=== PATIENT | female | born 1940 | race Caucasian/White ===

== ENCOUNTER 2022-12-28 10:11 | Inpatient (IN) | payer OTHER ==
[2022-12-28 12:10] LABS: BASO % 0.7 % (0-2.0); EOS % 0.6 % (0-4.5); HEMATOCRIT 42.8 % (32.4-45.2); HEMOGLOBIN 14.6 GM/dL (10.7-15.3); LYMPH % 10.9 % (8-40); MCH 30.9 pg (25.7-33.7); MCHC 34.1 g/dl (32.0-36.0); MEAN CELL VOLUME 90.7 fl (80-96); MONO % 3.4 % (3.8-10.2); NEUT % 84.4 % (42.8-82.8); PLATELET COUNT 276 10^3/uL (134-434); RBC 4.72 M/mm3 (3.60-5.2); RDW 14.3 % (11.6-15.6); WHITE BLOOD COUNT 12.3 K/mm3 (4.0-10.0)
[2022-12-28 12:18] LABS: INR 1.48 (0.83-1.09); PROTHROMBIN TIME (PATIENT) 17.1 SEC (9.7-13.0)
[2022-12-28 12:21] LABS: ACTIVATED PTT 31.3 SECONDS (25.2-36.5)
[2022-12-28 12:29] LABS: POTASSIUM 3.9 mmol/L (3.5-5.1)
[2022-12-28 12:31] LABS: ALBUMIN 2.9 g/dl (3.4-5.0); CALCIUM 9.3 mg/dL (8.5-10.1)
[2022-12-28 12:32] LABS: BLOOD UREA NITROGEN 27.5 mg/dL (7-18)
[2022-12-28 12:34] LABS: CREATININE 0.8 mg/dL (0.55-1.3)
[2022-12-28 12:36] LABS: BILIRUBIN,TOTAL 0.7 mg/dL (0.2-1); TOT PROT 6.7 g/dl (6.4-8.2)
[2022-12-28 12:40] LABS: N-TERMINAL BNP 1558.6 pg/ml (5-450)
[2022-12-28 12:48] LABS: LACTIC ACID 3.1 mmol/L (0.4-2.0)
[2022-12-28 13:27] LABS: VENOUS BASE EXCESS 5.7 mmol/L (-2-2); VENOUS O2 SATURATION 37.3 % (70-80); VENOUS PCO2 59.7 mmHg (38-52); VENOUS PH 7.363 (7.310-7.410)
[2022-12-28 13:37] LABS: EPI CELLS 4 /uL (0-25.1); HYALINE CASTS 0 /uL (0-3.1); PH,URINE 6.5 (5.0-8.0); URINE APPEARANCE CLEAR; URINE BACTERIA >9,000 /uL (0-1359); URINE BILIRUBIN NEGATIVE (NEGATIVE); URINE COLOR YELLOW; URINE GLUCOSE (UA) NEGATIVE (NEGATIVE); URINE KETONE NEGATIVE (NEGATIVE); URINE LEUK ESTERASE 1+ (NEGATIVE); URINE NITRITE POSITIVE (NEGATIVE); URINE PROTEIN NEGATIVE (NEGATIVE); URINE RBC 19 /uL (0-23.9); URINE UROBILINOGEN 0.2 mg/dL (0.2-1.0); URINE WBC 89 /uL (0-25.8)
[2022-12-28] MEDS ORDERED: PIPERACILLIN/TAZOB 3.375 GM 3.375 GM in DEXTROSE 5%-WATER - 50 ML IVPB ONE (13:45)
[2022-12-28] MEDS ORDERED: PIPERACILLIN/TAZOB 3.375 GM 3.375 GM/50 ML BAG IVPB ONE (13:54)
[2022-12-28 14:13] LABS: ARTERIAL BLD GAS O2 SATURATION 96.4 % (95-98); ARTERIAL BLOOD GAS BASE EXCESS 5.9 mmol/L (-2-2); ARTERIAL BLOOD GAS PO2 77.4 mmHg (80-100); ARTERIAL BLOOD GAS pH 7.494 (7.350-7.450)
[2022-12-28 14:16] LABS: ALLENS TEST POSITIVE
[2022-12-28 15:17] VITALS: BMI 44.4
[2022-12-28] MEDS ORDERED: metoPROLOL SUCCINATE 25 MG TAB.SR.24H (FP) PO ONE (18:01)
[2022-12-28] MEDS: INSULIN SLIDING SCALE (NOVOLOG) 1 VIAL SQ SCH ×2 (18:05→21:38)
[2022-12-28] MEDS ORDERED: INSULIN (NOVOLOG) ASPART 100 UNITS/ML 10ML VIAL ONE (21:19)
[2022-12-28] MEDS: busPIRone HCL 5 MG TABLET PO SCH (21:28)
[2022-12-28] MEDS: MEMANTINE HCL 10 MG TABLET (FP) PO SCH (21:28)
[2022-12-28] MEDS: ATORVASTATIN CA 20 MG TABLET (FP) PO SCH (21:28)
[2022-12-28] MEDS: APIXABAN 5 MG TABLET PO SCH (21:28)
[2022-12-29] MEDS: INSULIN SLIDING SCALE (NOVOLOG) 1 VIAL SQ SCH ×4 (06:11→22:23)
[2022-12-29 08:08] LABS: POTASSIUM 3.1 mmol/L (3.5-5.1)
[2022-12-29 08:15] LABS: HEMATOCRIT 38.8 % (32.4-45.2); HEMOGLOBIN 13.1 GM/dL (10.7-15.3); MCH 30.7 pg (25.7-33.7); MCHC 33.8 g/dl (32.0-36.0); MEAN CELL VOLUME 90.7 fl (80-96); MEAN PLT VOLUME 7.7 fl (7.5-11.1); PLATELET COUNT 230 10^3/uL (134-434); RBC 4.28 M/mm3 (3.60-5.2); RDW 14.1 % (11.6-15.6)
[2022-12-29 08:40] LABS: BLOOD UREA NITROGEN 29.5 mg/dL (7-18); CALCIUM 9.3 mg/dL (8.5-10.1)
[2022-12-29 08:41] LABS: ALBUMIN 2.6 g/dl (3.4-5.0)
[2022-12-29 08:44] LABS: CREATININE 0.8 mg/dL (0.55-1.3)
[2022-12-29 08:45] LABS: BILIRUBIN,TOTAL 0.9 mg/dL (0.2-1); TOT PROT 6.1 g/dl (6.4-8.2)
[2022-12-29] MEDS ORDERED: DULoxetine HCL 20 MG CAPSULE.DR PO SCH (10:00)
[2022-12-29] MEDS: busPIRone HCL 5 MG TABLET PO SCH ×2 (10:06→22:21)
[2022-12-29] MEDS: metoPROLOL SUCCINATE 25 MG TAB.SR.24H (FP) PO SCH (10:06)
[2022-12-29] MEDS: FUROSEMIDE 20 MG TABLET (FP) PO SCH (10:06)
[2022-12-29] MEDS: APIXABAN 5 MG TABLET PO SCH ×2 (10:06→22:21)
[2022-12-29] MEDS: PANTOPRAZOLE 40 MG TABLET PO SCH (10:06)
[2022-12-29] MEDS: MEMANTINE HCL 10 MG TABLET (FP) PO SCH ×2 (10:06→22:21)
[2022-12-29] MEDS ORDERED: INSULIN (NOVOLOG) ASPART 100 UNITS/ML 10ML VIAL ONE (10:36)
[2022-12-29] MEDS: POLYETHYLENE GLYCOL (HEALTHYLAX) 3350 17 GM PACKET PO SCH (11:06)
[2022-12-29] MEDS: COLLAGENASE CLOSTRIDIUM HIST. 30 GRAMS TUBE TP SCH ×2 (12:00→14:00)
[2022-12-29] MEDS ORDERED: POTASSIUM CHLORIDE ORAL LIQUID 20 MEQ/15 ML PO ONE (14:33)
[2022-12-29] MEDS: PIPERACILLIN/TAZOB 3.375 GM 3.375 GM in DEXTROSE 5%-WATER - 50 ML IVPB SCH (17:26)
[2022-12-29] MEDS ORDERED: POTASSIUM CHLORIDE TABS 10 MEQ TABLET.ER (FP) PO SCH (22:00)
[2022-12-29] MEDS: DULoxetine HCL 20 MG CAPSULE.DR PO SCH (22:20)
[2022-12-29] MEDS: POTASSIUM CHLORIDE TABS 10 MEQ TABLET.ER (FP) PO SCH (22:21)
[2022-12-29] MEDS: ATORVASTATIN CA 20 MG TABLET (FP) PO SCH (22:21)
[2022-12-29] MEDS: NYSTATIN 100,000 UNIT/GM TOPICAL CREAM 15 GM TUBE TP SCH (22:22)
[2022-12-30] MEDS: PIPERACILLIN/TAZOB 3.375 GM 3.375 GM in DEXTROSE 5%-WATER - 50 ML IVPB SCH ×3 (01:04→17:12)
[2022-12-30] MEDS: INSULIN SLIDING SCALE (NOVOLOG) 1 VIAL SQ SCH ×4 (06:08→21:16)
[2022-12-30] MEDS ORDERED: INSULIN (NOVOLOG) ASPART 100 UNITS/ML 10ML VIAL ONE ×2 (06:21→21:07)
[2022-12-30 08:32] LABS: HEMATOCRIT 37.5 % (32.4-45.2); HEMOGLOBIN 12.6 GM/dL (10.7-15.3); MCH 30.4 pg (25.7-33.7); MCHC 33.6 g/dl (32.0-36.0); MEAN CELL VOLUME 90.5 fl (80-96); MEAN PLT VOLUME 7.6 fl (7.5-11.1); PLATELET COUNT 221 10^3/uL (134-434); RBC 4.15 M/mm3 (3.60-5.2); RDW 14.3 % (11.6-15.6); WHITE BLOOD COUNT 7.6 K/mm3 (4.0-10.0)
[2022-12-30 08:40] LABS: POTASSIUM 3.5 mmol/L (3.5-5.1)
[2022-12-30 08:42] LABS: BLOOD UREA NITROGEN 28.4 mg/dL (7-18); CALCIUM 8.7 mg/dL (8.5-10.1); MAGNESIUM 1.8 mg/dL (1.8-2.4)
[2022-12-30 08:43] LABS: ALBUMIN 2.4 g/dl (3.4-5.0)
[2022-12-30 08:45] LABS: CREATININE 0.9 mg/dL (0.55-1.3)
[2022-12-30 08:47] LABS: BILIRUBIN,TOTAL 0.4 mg/dL (0.2-1); TOT PROT 5.8 g/dl (6.4-8.2)
[2022-12-30] MEDS: DULoxetine HCL 20 MG CAPSULE.DR PO SCH ×2 (09:50→21:09)
[2022-12-30] MEDS: POLYETHYLENE GLYCOL (HEALTHYLAX) 3350 17 GM PACKET PO SCH (09:50)
[2022-12-30] MEDS: MEMANTINE HCL 10 MG TABLET (FP) PO SCH ×2 (09:51→21:10)
[2022-12-30] MEDS: PANTOPRAZOLE 40 MG TABLET PO SCH (09:51)
[2022-12-30] MEDS: APIXABAN 5 MG TABLET PO SCH ×2 (09:51→21:10)
[2022-12-30] MEDS: metoPROLOL SUCCINATE 25 MG TAB.SR.24H (FP) PO SCH (09:51)
[2022-12-30] MEDS: busPIRone HCL 5 MG TABLET PO SCH ×2 (09:51→21:10)
[2022-12-30] MEDS: POTASSIUM CHLORIDE TABS 10 MEQ TABLET.ER (FP) PO SCH ×2 (09:51→21:10)
[2022-12-30] MEDS: FUROSEMIDE 20 MG TABLET (FP) PO SCH (09:52)
[2022-12-30] MEDS: COLLAGENASE CLOSTRIDIUM HIST. 30 GRAMS TUBE TP SCH (09:54)
[2022-12-30] MEDS: NYSTATIN 100,000 UNIT/GM TOPICAL CREAM 15 GM TUBE TP SCH ×2 (09:54→21:10)
[2022-12-30] MEDS: ATORVASTATIN CA 20 MG TABLET (FP) PO SCH (21:09)
[2022-12-31] MEDS: PIPERACILLIN/TAZOB 3.375 GM 3.375 GM in DEXTROSE 5%-WATER - 50 ML IVPB SCH ×2 (01:49→10:15)
[2022-12-31] MEDS: INSULIN SLIDING SCALE (NOVOLOG) 1 VIAL SQ SCH ×4 (06:03→21:40)
[2022-12-31] MEDS: metoPROLOL SUCCINATE 25 MG TAB.SR.24H (FP) PO SCH (09:47)
[2022-12-31] MEDS: busPIRone HCL 5 MG TABLET PO SCH ×2 (09:47→21:24)
[2022-12-31] MEDS: POLYETHYLENE GLYCOL (HEALTHYLAX) 3350 17 GM PACKET PO SCH (09:47)
[2022-12-31] MEDS: FUROSEMIDE 20 MG TABLET (FP) PO SCH (09:47)
[2022-12-31] MEDS: PANTOPRAZOLE 40 MG TABLET PO SCH (09:47)
[2022-12-31] MEDS: APIXABAN 5 MG TABLET PO SCH ×2 (09:48→21:23)
[2022-12-31] MEDS: MEMANTINE HCL 10 MG TABLET (FP) PO SCH ×2 (09:48→21:25)
[2022-12-31] MEDS: POTASSIUM CHLORIDE TABS 10 MEQ TABLET.ER (FP) PO SCH ×2 (09:48→21:23)
[2022-12-31] MEDS: DULoxetine HCL 20 MG CAPSULE.DR PO SCH ×2 (09:49→21:23)
[2022-12-31] MEDS: NYSTATIN 100,000 UNIT/GM TOPICAL CREAM 15 GM TUBE TP SCH ×2 (10:01→21:24)
[2022-12-31] MEDS: COLLAGENASE CLOSTRIDIUM HIST. 30 GRAMS TUBE TP SCH (10:07)
[2022-12-31] MEDS ORDERED: INSULIN (NOVOLOG) ASPART 100 UNITS/ML 10ML VIAL ONE ×3 (11:22→21:07)
[2022-12-31] MEDS: CEFTRIAXONE 2 GM in DEXTROSE 5%-WATER 100 ML IVPB SCH (11:36)
[2022-12-31] MEDS ORDERED: ALPRAZolam 0.25 MG TABLET PO ONE ×2 (15:30→15:45)
[2022-12-31] MEDS: ATORVASTATIN CA 20 MG TABLET (FP) PO SCH (21:24)
[2023-01-01] MEDS: INSULIN SLIDING SCALE (NOVOLOG) 1 VIAL SQ SCH ×4 (06:00→21:34)
[2023-01-01] MEDS: POLYETHYLENE GLYCOL (HEALTHYLAX) 3350 17 GM PACKET PO SCH (09:35)
[2023-01-01] MEDS: APIXABAN 5 MG TABLET PO SCH ×2 (09:35→21:34)
[2023-01-01] MEDS: FUROSEMIDE 20 MG TABLET (FP) PO SCH (09:35)
[2023-01-01] MEDS: metoPROLOL SUCCINATE 25 MG TAB.SR.24H (FP) PO SCH (09:35)
[2023-01-01] MEDS: POTASSIUM CHLORIDE TABS 10 MEQ TABLET.ER (FP) PO SCH ×2 (09:35→21:34)
[2023-01-01] MEDS: DULoxetine HCL 20 MG CAPSULE.DR PO SCH ×2 (09:35→21:34)
[2023-01-01] MEDS: PANTOPRAZOLE 40 MG TABLET PO SCH (09:35)
[2023-01-01] MEDS: busPIRone HCL 5 MG TABLET PO SCH ×2 (09:35→21:34)
[2023-01-01] MEDS: COLLAGENASE CLOSTRIDIUM HIST. 30 GRAMS TUBE TP SCH (09:36)
[2023-01-01] MEDS: NAMENDA 21 MG PO SCH (09:46)
[2023-01-01] MEDS: CEFTRIAXONE 2 GM in DEXTROSE 5%-WATER 100 ML IVPB SCH (09:47)
[2023-01-01] MEDS: NYSTATIN 100,000 UNIT/GM TOPICAL CREAM 15 GM TUBE TP SCH ×2 (09:53→22:10)
[2023-01-01] MEDS ORDERED: INSULIN (NOVOLOG) ASPART 100 UNITS/ML 10ML VIAL ONE ×2 (10:18→21:19)
[2023-01-01] MEDS ORDERED: ACETAMINOPHEN 1000 MG/100 ML BAG IVPB PRN (20:39)
[2023-01-01] MEDS ORDERED: CYCLOBENZAPRINE HCL 10 MG TABLET (FP) PO ONE (20:39)
[2023-01-01] MEDS: ATORVASTATIN CA 20 MG TABLET (FP) PO SCH (21:34)
[2023-01-02] MEDS: INSULIN SLIDING SCALE (NOVOLOG) 1 VIAL SQ SCH ×4 (06:57→21:40)
[2023-01-02] MEDS: busPIRone HCL 5 MG TABLET PO SCH ×2 (09:31→21:35)
[2023-01-02] MEDS: PANTOPRAZOLE 40 MG TABLET PO SCH (09:31)
[2023-01-02] MEDS: metoPROLOL SUCCINATE 25 MG TAB.SR.24H (FP) PO SCH (09:31)
[2023-01-02] MEDS: POTASSIUM CHLORIDE TABS 10 MEQ TABLET.ER (FP) PO SCH ×2 (09:32→21:35)
[2023-01-02] MEDS: APIXABAN 5 MG TABLET PO SCH ×2 (09:32→21:35)
[2023-01-02] MEDS: CEFTRIAXONE 2 GM in DEXTROSE 5%-WATER 100 ML IVPB SCH (09:33)
[2023-01-02] MEDS: POLYETHYLENE GLYCOL (HEALTHYLAX) 3350 17 GM PACKET PO SCH (09:33)
[2023-01-02] MEDS: DULoxetine HCL 20 MG CAPSULE.DR PO SCH ×2 (09:35→21:35)
[2023-01-02] MEDS: NAMENDA 21 MG PO SCH (09:36)
[2023-01-02] MEDS: FUROSEMIDE 20 MG TABLET (FP) PO SCH (09:36)
[2023-01-02] MEDS: NYSTATIN 100,000 UNIT/GM TOPICAL CREAM 15 GM TUBE TP SCH ×2 (09:37→22:00)
[2023-01-02] MEDS: COLLAGENASE CLOSTRIDIUM HIST. 30 GRAMS TUBE TP SCH (11:32)
[2023-01-02] MEDS ORDERED: ALPRAZolam 0.25 MG TABLET PO ONE (12:00)
[2023-01-02] MEDS: FLUTICASONE PROP 0.05% 16 GM NASAL SPRAY NS SCH (16:59)
[2023-01-02] MEDS: ATORVASTATIN CA 20 MG TABLET (FP) PO SCH (21:35)
[2023-01-02] MEDS ORDERED: ACETAMINOPHEN 325 MG TABLET (FP) PO ONE (21:37)
[2023-01-02] MEDS: MELATONIN 5 MG TABLETS PO PRN (21:49)
[2023-01-03] MEDS ORDERED: ACETAMINOPHEN 1000 MG/100 ML BAG IVPB ONE (01:30)
[2023-01-03] MEDS: INSULIN SLIDING SCALE (NOVOLOG) 1 VIAL SQ SCH ×4 (07:44→21:57)
[2023-01-03 09:13] LABS: EOS % 3.1 % (0-4.5); HEMATOCRIT 36.6 % (32.4-45.2); HEMOGLOBIN 12.3 GM/dL (10.7-15.3); LYMPH % 25.3 % (8-40); MCH 30.7 pg (25.7-33.7); MCHC 33.7 g/dl (32.0-36.0); MEAN PLT VOLUME 7.5 fl (7.5-11.1); NEUT % 65.6 % (42.8-82.8); PLATELET COUNT 215 10^3/uL (134-434); RBC 4.02 M/mm3 (3.60-5.2); RDW 14.3 % (11.6-15.6); WHITE BLOOD COUNT 5.8 K/mm3 (4.0-10.0)
[2023-01-03 09:15] LABS: POTASSIUM 4.1 mmol/L (3.5-5.1)
[2023-01-03 09:18] LABS: CALCIUM 9.1 mg/dL (8.5-10.1)
[2023-01-03 09:19] LABS: ALBUMIN 2.3 g/dl (3.4-5.0); BLOOD UREA NITROGEN 23.7 mg/dL (7-18)
[2023-01-03 09:22] LABS: CREATININE 0.6 mg/dL (0.55-1.3)
[2023-01-03 09:23] LABS: BILIRUBIN,TOTAL 0.6 mg/dL (0.2-1); TOT PROT 5.6 g/dl (6.4-8.2)
[2023-01-03] MEDS: PANTOPRAZOLE 40 MG TABLET PO SCH (09:52)
[2023-01-03] MEDS: APIXABAN 5 MG TABLET PO SCH ×2 (09:52→21:47)
[2023-01-03] MEDS: POLYETHYLENE GLYCOL (HEALTHYLAX) 3350 17 GM PACKET PO SCH (09:52)
[2023-01-03] MEDS: metoPROLOL SUCCINATE 25 MG TAB.SR.24H (FP) PO SCH (09:52)
[2023-01-03] MEDS: POTASSIUM CHLORIDE TABS 10 MEQ TABLET.ER (FP) PO SCH ×2 (09:52→21:47)
[2023-01-03] MEDS: busPIRone HCL 5 MG TABLET PO SCH ×2 (09:52→21:47)
[2023-01-03] MEDS: FUROSEMIDE 20 MG TABLET (FP) PO SCH (09:52)
[2023-01-03] MEDS: CEFTRIAXONE 2 GM in DEXTROSE 5%-WATER 100 ML IVPB SCH (09:53)
[2023-01-03] MEDS: DULoxetine HCL 20 MG CAPSULE.DR PO SCH ×2 (09:54→21:46)
[2023-01-03] MEDS: NAMENDA 21 MG PO SCH (09:55)
[2023-01-03] MEDS: NYSTATIN 100,000 UNIT/GM TOPICAL CREAM 15 GM TUBE TP SCH ×2 (10:06→22:04)
[2023-01-03] MEDS: COLLAGENASE CLOSTRIDIUM HIST. 30 GRAMS TUBE TP SCH (10:07)
[2023-01-03] MEDS: FLUTICASONE PROP 0.05% 16 GM NASAL SPRAY NS SCH (10:07)
[2023-01-03] MEDS: CYCLOBENZAPRINE HCL 5 MG TABLET PO SCH (12:12)
[2023-01-03] MEDS: CEPHALEXIN MONOHYDRATE 500 MG CAPSULE (UD) PO SCH ×2 (14:13→21:47)
[2023-01-03] MEDS: MELATONIN 5 MG TABLETS PO PRN (21:46)
[2023-01-03] MEDS: ATORVASTATIN CA 20 MG TABLET (FP) PO SCH (21:47)
[2023-01-03] MEDS: ACETAMINOPHEN 325 MG TABLET (FP) PO PRN (21:47)
[2023-01-04] MEDS: CEPHALEXIN MONOHYDRATE 500 MG CAPSULE (UD) PO SCH ×3 (06:29→22:08)
[2023-01-04] MEDS: INSULIN SLIDING SCALE (NOVOLOG) 1 VIAL SQ SCH ×4 (06:40→22:09)
[2023-01-04] MEDS: CYCLOBENZAPRINE HCL 5 MG TABLET PO SCH (10:56)
[2023-01-04] MEDS: POLYETHYLENE GLYCOL (HEALTHYLAX) 3350 17 GM PACKET PO SCH (10:56)
[2023-01-04] MEDS: APIXABAN 5 MG TABLET PO SCH ×2 (10:56→22:08)
[2023-01-04] MEDS: POTASSIUM CHLORIDE TABS 10 MEQ TABLET.ER (FP) PO SCH ×2 (10:56→22:08)
[2023-01-04] MEDS: busPIRone HCL 5 MG TABLET PO SCH ×2 (10:56→22:08)
[2023-01-04] MEDS: metoPROLOL SUCCINATE 25 MG TAB.SR.24H (FP) PO SCH (10:56)
[2023-01-04] MEDS: FUROSEMIDE 20 MG TABLET (FP) PO SCH (10:56)
[2023-01-04] MEDS: PANTOPRAZOLE 40 MG TABLET PO SCH (10:56)
[2023-01-04] MEDS: DULoxetine HCL 20 MG CAPSULE.DR PO SCH ×2 (10:56→22:08)
[2023-01-04] MEDS: FLUTICASONE PROP 0.05% 16 GM NASAL SPRAY NS SCH (10:57)
[2023-01-04] MEDS: NAMENDA 21 MG PO SCH (10:57)
[2023-01-04] MEDS: NYSTATIN 100,000 UNIT/GM TOPICAL CREAM 15 GM TUBE TP SCH ×2 (10:57→22:16)
[2023-01-04] MEDS: COLLAGENASE CLOSTRIDIUM HIST. 30 GRAMS TUBE TP SCH (10:58)
[2023-01-04 14:02] VITALS: RESP 18
[2023-01-04] MEDS: MULTIVITAMINS (DAILY MVI) TABLET (FP) PO SCH (15:33)
[2023-01-04] MEDS: ASCORBIC ACID 250 MG TABLET (FP) PO SCH (15:34)
[2023-01-04] MEDS: MELATONIN 5 MG TABLETS PO PRN (22:08)
[2023-01-04] MEDS: ATORVASTATIN CA 20 MG TABLET (FP) PO SCH (22:08)
[2023-01-04] MEDS: ACETAMINOPHEN 325 MG TABLET (FP) PO PRN (22:09)
[2023-01-05] MEDS: CEPHALEXIN MONOHYDRATE 500 MG CAPSULE (UD) PO SCH (06:14)
[2023-01-05] MEDS: INSULIN SLIDING SCALE (NOVOLOG) 1 VIAL SQ SCH ×2 (06:45→12:12)
[2023-01-05] MEDS: DULoxetine HCL 20 MG CAPSULE.DR PO SCH (09:35)
[2023-01-05] MEDS: busPIRone HCL 5 MG TABLET PO SCH (09:36)
[2023-01-05] MEDS: CYCLOBENZAPRINE HCL 5 MG TABLET PO SCH (09:36)
[2023-01-05] MEDS: ASCORBIC ACID 250 MG TABLET (FP) PO SCH (09:36)
[2023-01-05] MEDS: MULTIVITAMINS (DAILY MVI) TABLET (FP) PO SCH (09:36)
[2023-01-05] MEDS: metoPROLOL SUCCINATE 25 MG TAB.SR.24H (FP) PO SCH (09:36)
[2023-01-05] MEDS: FUROSEMIDE 20 MG TABLET (FP) PO SCH (09:36)
[2023-01-05] MEDS: POTASSIUM CHLORIDE TABS 10 MEQ TABLET.ER (FP) PO SCH (09:36)
[2023-01-05] MEDS: PANTOPRAZOLE 40 MG TABLET PO SCH (09:36)
[2023-01-05] MEDS: APIXABAN 5 MG TABLET PO SCH (09:36)
[2023-01-05] MEDS: NAMENDA 21 MG PO SCH (09:38)
[2023-01-05] MEDS: COLLAGENASE CLOSTRIDIUM HIST. 30 GRAMS TUBE TP SCH (09:38)
[2023-01-05] MEDS: NYSTATIN 100,000 UNIT/GM TOPICAL CREAM 15 GM TUBE TP SCH (09:38)
[2023-01-05] MEDS: FLUTICASONE PROP 0.05% 16 GM NASAL SPRAY NS SCH (09:39)
[2023-01-05] MEDS: POLYETHYLENE GLYCOL (HEALTHYLAX) 3350 17 GM PACKET PO SCH (09:39)
[2023-01-05] MEDS ORDERED: ASCORBIC ACID 250 MG TABLET (FP) PO SCH (13:00)
[2023-01-05] MEDS ORDERED: AMINO ACIDS/PROTEIN HYDROLYS 30 ML LIQUID.PKT PO SCH (13:00)
[2023-01-05 14:18] VITALS: BP 148/86; PULSE 85; TEMP 98
== END 2023-01-05 14:27 | DRG 690 ==
LOC: JER 10:11 → JERBED 14:17 → J6S 17:40 → J8W 01-03 15:26
PROVIDERS: ADMIT Family Medicine; ATTEND Family Medicine
DX: N39.0 Urinary tract infection, site not specified (principal); Z68.42 Body mass index [BMI] 45.0-49.9, adult; E87.20 Acidosis, unspecified; M50.00 Cervical disc disorder with myelopathy, unspecified cervical region; J98.11 Atelectasis; M50.021 Cervical disc disorder at C4-C5 level with myelopathy; B96.20 Unspecified Escherichia coli [E. coli] as the cause of diseases classified elsewhere; I48.91 Unspecified atrial fibrillation; E78.5 Hyperlipidemia, unspecified; K21.9 Gastro-esophageal reflux disease without esophagitis; F41.8 Other specified anxiety disorders; E11.9 Type 2 diabetes mellitus without complications; E66.01 Morbid (severe) obesity due to excess calories; E87.6 Hypokalemia; I11.0 Hypertensive heart disease with heart failure; I50.9 Heart failure, unspecified; R26.89 Other abnormalities of gait and mobility; M48.02 Spinal stenosis, cervical region; D72.829 Elevated white blood cell count, unspecified
CPT/HCPCS: 0241U-QW; 36415; 36600; 70450-TC; 71045-TC-FY; 72141-TC; 72148-TC; 80048; 80053; 81003; 82550; 82607; 82803; 82962; 83605; 83735; 83880; 84443; 84484; 85025; 85027; 85610; 85730; 87040; 87086; 87186; 93005; 93010; 93225; 93226; 93306-TC; 94010; 97116-GP; 97162-GP; 99285-25; C9803-CS; U0003; U0005

== ENCOUNTER 2023-12-26 15:40 | Inpatient (IN) | payer OTHER ==
[2023-12-26 17:21] LABS: VENOUS PCO2 52.6 mmHg (38-52); VENOUS PH 7.357 (7.310-7.410)
[2023-12-26 17:22] LABS: VENOUS BASE EXCESS 1.7 mmol/L (-2-2)
[2023-12-26 17:25] LABS: BASO % 0.3 % (0-2.0); EOS % 1.1 % (0-4.5); HEMATOCRIT 40.5 % (32.4-45.2); HEMOGLOBIN 13.3 GM/dL (10.7-15.3); LYMPH % 14.1 % (8-40); MCH 29.3 pg (25.7-33.7); MCHC 32.9 g/dl (32.0-36.0); MEAN CELL VOLUME 89.2 fl (80-96); MONO % 5.7 % (3.8-10.2); NEUT % 78.8 % (42.8-82.8); PLATELET COUNT 389 10^3/uL (134-434); RBC 4.54 M/mm3 (3.60-5.2); RDW 15.2 % (11.6-15.6); WHITE BLOOD COUNT 9.3 K/mm3 (4.0-10.0)
[2023-12-26 17:34] LABS: INR 1.56 (0.83-1.09); PROTHROMBIN TIME (PATIENT) 17.4 SEC (9.7-13.0)
[2023-12-26 17:36] LABS: ACTIVATED PTT 33.8 SECONDS (25.2-36.5)
[2023-12-26 17:50] LABS: POTASSIUM 4.1 mmol/L (3.5-5.1)
[2023-12-26 17:52] LABS: CALCIUM 9.3 mg/dL (8.5-10.1)
[2023-12-26 17:53] LABS: ALBUMIN 3.1 g/dl (3.4-5.0); BLOOD UREA NITROGEN 22.2 mg/dL (7-18)
[2023-12-26 17:56] LABS: CREATININE 0.9 mg/dL (0.55-1.3)
[2023-12-26 17:57] LABS: BILIRUBIN,TOTAL 0.6 mg/dL (0.2-1)
[2023-12-26 17:58] LABS: TOT PROT 6.9 g/dl (6.4-8.2)
[2023-12-26] MEDS: SODIUM CHLORIDE 0.9% 1000 ML INFUS.BAG IV ONE (19:05)
[2023-12-26 19:49] LABS: N-TERMINAL BNP 2463.6 pg/ml (5-450)
[2023-12-26 22:33] LABS: EPI CELLS 20 /uL (0-25.1); HYALINE CASTS 19 /uL (0-3.1); URINE APPEARANCE CLOUDY; URINE BACTERIA >9,000 /uL (0-1359); URINE BILIRUBIN NEGATIVE (NEGATIVE); URINE COLOR YELLOW; URINE GLUCOSE (UA) NEGATIVE (NEGATIVE); URINE KETONE NEGATIVE (NEGATIVE); URINE LEUK ESTERASE 3+ (NEGATIVE); URINE NITRITE POSITIVE (NEGATIVE); URINE PROTEIN NEGATIVE (NEGATIVE); URINE RBC 16 /uL (0-23.9); URINE UROBILINOGEN 0.2 mg/dL (0.2-1.0); URINE WBC 2179 /uL (0-25.8)
[2023-12-26] MEDS ORDERED: CEFTRIAXONE 1 GM/50 ML BAG ONE (23:28)
[2023-12-26] MEDS: CEFTRIAXONE 1,000 MG in DEXTROSE 5%-WATER - 50 ML IVPB ONE (23:37)
[2023-12-27 02:57] VITALS: BMI 41.8
[2023-12-27 08:21] LABS: BASO % 0.5 % (0-2.0); EOS % 1.4 % (0-4.5); HEMATOCRIT 36.5 % (32.4-45.2); LYMPH % 15.4 % (8-40); MCH 29.7 pg (25.7-33.7); MCHC 32.8 g/dl (32.0-36.0); MEAN CELL VOLUME 90.6 fl (80-96); MEAN PLT VOLUME 7.1 fl (7.5-11.1); MONO % 10.6 % (3.8-10.2); NEUT % 72.1 % (42.8-82.8); PLATELET COUNT 297 10^3/uL (134-434); RBC 4.03 M/mm3 (3.60-5.2); RDW 15.1 % (11.6-15.6); WHITE BLOOD COUNT 9.3 K/mm3 (4.0-10.0)
[2023-12-27] MEDS: MEMANTINE HCL 10 MG TABLET (FP) PO SCH (09:31)
[2023-12-27] MEDS: CEFTRIAXONE 1 GM in DEXTROSE 5%-WATER - 50 ML IVPB SCH (09:31)
[2023-12-27] MEDS: DULoxetine HCL 20 MG CAPSULE.DR PO SCH (09:31)
[2023-12-27] MEDS: APIXABAN 5 MG TABLET PO SCH (09:31)
[2023-12-27] MEDS: metoPROLOL SUCCINATE 25 MG TAB.SR.24H (FP) PO SCH (09:31)
[2023-12-27] MEDS: PANTOPRAZOLE 20 MG TABLET PO SCH (09:31)
[2023-12-27] MEDS: FUROSEMIDE 40 MG/4 ML INJECTABLE VIAL IVPUSH SCH (09:32)
[2023-12-27 10:34] LABS: ALBUMIN 2.6 g/dl (3.4-5.0); BILIRUBIN,TOTAL 0.5 mg/dL (0.2-1); CALCIUM 8.9 mg/dL (8.5-10.1); CREATININE 0.8 mg/dL (0.55-1.3); POTASSIUM 3.8 mmol/L (3.5-5.1); TOT PROT 5.9 g/dl (6.4-8.2)
[2023-12-27] MEDS: ACETAMINOPHEN 325 MG TABLET (FP) PO PRN (11:16)
[2023-12-27] MEDS: busPIRone HCL 5 MG TABLET PO SCH (21:37)
[2023-12-27] MEDS: CYCLOBENZAPRINE HCL 5 MG TABLET PO SCH (21:38)
[2023-12-27] MEDS: ATORVASTATIN CA 20 MG TABLET (FP) PO SCH (21:38)
[2023-12-27] MEDS: FAMOTIDINE 20 MG TABLET PO SCH (21:38)
[2023-12-28] MEDS: LACTOBACILLUS ACIDOPHILUS 1 TABLET PO SCH (17:36)
[2023-12-28] MEDS: [UNRECOGNIZED DRUG - OTHER] PO SCH (21:31)
[2023-12-28] MEDS: MAGNESIUM GLYCINATE MAG OXIDE PO SCH (21:31)
[2023-12-28] MEDS: RAMELTEON 8 MG PO SCH (21:39)
[2023-12-29 09:35] LABS: BASO % 0.4 % (0-2.0); EOS % 2.9 % (0-4.5); HEMATOCRIT 36.2 % (32.4-45.2); HEMOGLOBIN 11.9 GM/dL (10.7-15.3); LYMPH % 28.2 % (8-40); MCH 29.4 pg (25.7-33.7); MCHC 32.8 g/dl (32.0-36.0); MEAN CELL VOLUME 89.6 fl (80-96); MONO % 12.4 % (3.8-10.2); NEUT % 56.1 % (42.8-82.8); PLATELET COUNT 298 10^3/uL (134-434); RBC 4.04 M/mm3 (3.60-5.2); RDW 14.9 % (11.6-15.6); WHITE BLOOD COUNT 5.8 K/mm3 (4.0-10.0)
[2023-12-29 09:47] LABS: CALCIUM 9.3 mg/dL (8.5-10.1)
[2023-12-29 09:48] LABS: ALBUMIN 2.4 g/dl (3.4-5.0); BLOOD UREA NITROGEN 24.7 mg/dL (7-18)
[2023-12-29 09:51] LABS: CREATININE 0.7 mg/dL (0.55-1.3)
[2023-12-29 09:52] LABS: BILIRUBIN,TOTAL 0.3 mg/dL (0.2-1)
[2023-12-29 09:53] LABS: TOT PROT 5.8 g/dl (6.4-8.2)
[2023-12-29] MEDS ORDERED: FUROSEMIDE 20 MG TABLET (FP) PO SCH (10:00)
[2023-12-29] MEDS: POLYETHYLENE GLYCOL (HEALTHYLAX) 3350 17 GM PACKET PO ONE (20:53)
[2023-12-30] MEDS: POLYETHYLENE GLYCOL (HEALTHYLAX) 3350 17 GM PACKET PO PRN (19:44)
[2023-12-31] MEDS: DOCUSATE SODIUM 100 MG CAPSULE (FP) PO SCH (21:39)
[2023-12-31] MEDS: SENNOSIDES 8.6MG TABLET (FP) PO PRN (21:42)
[2024-01-01] MEDS: POLYETHYLENE GLYCOL (HEALTHYLAX) 3350 17 GM PACKET PO SCH (14:40)
[2024-01-01] MEDS: BISACODYL 10 MG SUPP.RECT PR ONE (14:40)
[2024-01-01] MEDS: SENNOSIDES 8.6MG TABLET (FP) PO SCH (21:27)
[2024-01-01 22:19] VITALS: RESP 18
[2024-01-02] MEDS: POLYETHYLENE GLYCOL (HEALTHYLAX) 3350 17 GM PACKET PO SCH (09:10)
[2024-01-02 12:35] LABS: HEMATOCRIT 37.6 % (32.4-45.2); HEMOGLOBIN 12.6 GM/dL (10.7-15.3); MCH 29.8 pg (25.7-33.7); MCHC 33.5 g/dl (32.0-36.0); MEAN CELL VOLUME 89.1 fl (80-96); MEAN PLT VOLUME 7.7 fl (7.5-11.1); RBC 4.22 M/mm3 (3.60-5.2); RDW 14.8 % (11.6-15.6)
[2024-01-02 12:36] LABS: WHITE BLOOD COUNT 12.1 K/mm3 (4.0-10.0)
[2024-01-02 12:37] LABS: PLATELET COUNT 301 10^3/uL (134-434)
[2024-01-02 13:23] LABS: PLATELET ESTIMATE ADEQUATE
[2024-01-02 13:32] LABS: POTASSIUM 3.7 mmol/L (3.5-5.1)
[2024-01-02 13:34] LABS: ALBUMIN 2.8 g/dl (3.4-5.0); BLOOD UREA NITROGEN 22.6 mg/dL (7-18); CALCIUM 9.1 mg/dL (8.5-10.1)
[2024-01-02 13:37] LABS: CREATININE 0.8 mg/dL (0.55-1.3)
[2024-01-02 13:39] LABS: BILIRUBIN,TOTAL 0.3 mg/dL (0.2-1); TOT PROT 6.3 g/dl (6.4-8.2)
[2024-01-02 15:30] VITALS: PULSE 79
[2024-01-02 18:18] VITALS: BP 128/77; TEMP 97.9
== END 2024-01-02 20:40 | disposition home health service (06) | DRG 291 ==
LOC: JER 15:40 → JERBED 23:51 → J4W 12-27 02:10
PROVIDERS: ADMIT Internal Medicine; ATTEND Family Medicine
DX: I11.0 Hypertensive heart disease with heart failure (principal); I50.33 Acute on chronic diastolic (congestive) heart failure; J96.01 Acute respiratory failure with hypoxia; J96.02 Acute respiratory failure with hypercapnia; N39.0 Urinary tract infection, site not specified; Z68.41 Body mass index [BMI] 40.0-44.9, adult; F03.90 Unspecified dementia, unspecified severity, without behavioral disturbance, psychotic disturbance, mood disturbance, and anxiety; E66.01 Morbid (severe) obesity due to excess calories; E11.9 Type 2 diabetes mellitus without complications; E78.5 Hyperlipidemia, unspecified; K76.89 Other specified diseases of liver; I48.91 Unspecified atrial fibrillation; F41.8 Other specified anxiety disorders; B96.20 Unspecified Escherichia coli [E. coli] as the cause of diseases classified elsewhere; B96.4 Proteus (mirabilis) (morganii) as the cause of diseases classified elsewhere; M62.81 Muscle weakness (generalized); K21.9 Gastro-esophageal reflux disease without esophagitis; Z96.651 Presence of right artificial knee joint
CPT/HCPCS: 0241U-QW; 36415; 71045-TC-FY; 71046-TC-FY; 71275-TC; 74021-TC-FY; 80053; 80061; 81003; 82803; 83036; 83605; 83880; 84443; 84484; 85025; 85610; 85730; 86850; 86900; 86901; 87040; 87086; 87186; 87899; 93005; 93010; 93306-TC; 94761; 97116-GP; 97162-GP; 99285-25; Q9967